=== PATIENT | female | born 1945 | race Caucasian/White ===

== ENCOUNTER 2016-07-31 08:59 | Outpatient (CLI) | payer MEDICARE, OTHER ==
[2016-07-31 12:41] LABS: #Basophils 0.1 thou/uL (0.0-0.2); #Eosinphils 0.1 thou/uL (0.0-0.7); #Lymphocytes 3.1 thou/uL (1.20-3.40); #Monocytes 0.5 thou/uL (0.11-0.59); #Neutrophils 4.4 thou/uL (1.40-6.50); %Basophils 0.7 % (0.0-1.0); %Eosinophils 1.6 % (0.0-10.0); %Lymphocytes 37.8 % (21.0-51.0); Hematocrit 45.7 % (36.0-47.0); Mean Platelet Volume 7.3 fL (7.4-10.4); Red Blood Cell (RBC) Count 4.75 mill/uL (4.20-5.40); White Blood Cell (WBC) Count 8.2 thou/uL (4.8-10.8)
[2016-07-31 12:55] LABS: ALT (SGPT) 29 U/L (0-55); AST (SGOT) 26 U/L (5-34); Alkaline Phosphatase 54 U/L (40-150); Anion Gap 18 mmol/L (10-20); BUN (Urea Nitrogen) 11 mg/dL (9.8-20.1); Bilirubin, Direct 0.2 mg/dL (0.1-0.3); Bilirubin, Total 0.5 mg/dL (0.2-1.2); Calc. Creatinine Clearance 0 mL/min (70-130); Calcium 9.8 mg/dL (7.8-10.44); Carbon Dioxide 25 mmol/L (23-31); Chloride 104 mmol/L (98-107); Estimated GFR-MDRD 71; LDL Cholesterol, Calculated 111 mg/dL; Protein, Total 7.5 g/dL (5.8-8.1)
[2016-07-31 13:04] LABS: Hemoglobin A1c 7.6 % (4.0-6.0)
== END 2016-07-31 09:00 ==
LOC: NAVSJIPCSP 08:59
PROVIDERS: ATTEND Family Medicine
DX: I10 Essential (primary) hypertension (principal)
CPT/HCPCS: 36415; 80048; 80061; 80076; 83036; 84443; 85025

== ENCOUNTER 2022-09-16 10:48 | Outpatient (CLI) | payer OTHER | END 2022-09-16 10:49 | disposition home or self-care (01) | LOC: NAV RAD 10:48 | PROVIDERS: ATTEND Family Medicine | DX: M25.532 Pain in left wrist (principal); M19.032 Primary osteoarthritis, left wrist ==

== ENCOUNTER 2023-01-08 10:06 | Outpatient (CLI) | payer OTHER | END 2023-01-08 10:07 | disposition home or self-care (01) | LOC: NAV RAD 10:06 | PROVIDERS: ATTEND Family Medicine | DX: R10.32 Left lower quadrant pain (principal); M46.1 Sacroiliitis, not elsewhere classified; M16.12 Unilateral primary osteoarthritis, left hip ==